=== PATIENT | female | born 1960 | race Caucasian/White ===

== ENCOUNTER → 2016-09-19 | Outpatient (CLI) | payer OTHER ==
--- NOTE | ~2016-09-19 | CR170 ---
[facility] A Service [facility] RADIOLOGY TEXT RESULTS PATIENT: MEGAN CHEUNG LOCATION: [facility] : 58 UNIT #: [id number] AGE: [address]: Bobbi Nugent MD SEX: F ORDER DR: [id number] [place], [place] [address] [id number] O MR#: [id number] Acc #: [id number] NAME: MEGAN CHEUNG : 1960 SEX: F STUDY DATE/TIME: 09/19/2016 10:51 UNIT: [facility] ROOM: STUDY DESCRIPTION: CR Knee 2 Views Rt Attending Physician: Bobbi Nugent M.D. Referring Physician: Bobbi Nugent M.D. Ordering Physician: Bobbi Nugent M.D. Primary Care Physician: Bobbi Nugent M.D. MEDICAL IMAGING REPORT This report is preliminary unless electronic signature is present EXAM Right knee. DATE OF EXAM 09/19/2016 INDICATIONS Right knee pain and osteoarthritis for 2 years. FINDINGS AP and lateral views of the right knee were obtained. There is mild narrowing in the lateral joint compartment with osteophyte formation from the lateral femoral condyle. There is minimal spurring from the patella. There is no fracture or effusion. IMPRESSION Degenerative change in the lateral joint compartment and patellofemoral joint; otherwise, normal. Dictated by... Jarret Mattson M.D. THIS IS AN ELECTRONICALLY VERIFIED REPORT Jarret Mattson M.D. at 09/20/2016 12:24 PM Manolo TD: 09/20/2016 00:04 JOB #: [id number] MEDICAL IMAGING REPORT [facility] A Service [facility] RADIOLOGY TEXT RESULTS PATIENT: MEGAN CHEUNG LOCATION: [facility] : 58 UNIT #: [id number] AGE: [address]: Bobbi Nugent MD SEX: F ORDER DR: COPY
--- NOTE | ~2016-09-19 | CR169 ---
[facility] A Service of [facility] RADIOLOGY TEXT RESULTS PATIENT: MEGAN CHEUNG LOCATION: [facility] : 58 UNIT #: [id number] AGE: [address]: Bobbi Nugent MD SEX: F ORDER DR: [id number] [facility] [address] [place], [place] [address] [id number] O MR#: [id number] Acc #: [id number] NAME: MEGAN CHEUNG : 1960 SEX: F STUDY DATE/TIME: 09/19/2016 10:52 UNIT: [facility] ROOM: STUDY DESCRIPTION: CR Knee 2 Views Lt Attending Physician: Bobbi Nugent M.D. Referring Physician: Bobbi Nugent M.D. Ordering Physician: Bobbi Nugent M.D. Primary Care Physician: Bobbi Nugent M.D. MEDICAL IMAGING REPORT This report is preliminary unless electronic signature is present EXAM Left knee. DATE OF EXAM 09/19/2016 INDICATION Left knee pain and osteoarthritis for 2 years. FINDINGS AP and lateral views of the left knee were obtained. There is no fracture or effusion. There is minimal spurring from patella. The AP view appears slightly flexed. No significant joint space narrowing is identified. IMPRESSION Minimal degenerative changes with some spurring from the patella. Dictated by... Jarret Mattson M.D. THIS IS AN ELECTRONICALLY VERIFIED REPORT Jarret Mattson M.D. at 09/20/2016 12:24 PM Manolo TD: 09/20/2016 00:06 JOB #: [id number] MEDICAL IMAGING REPORT COPY
== END | disposition home or self-care (01) ==
LOC: CRAD 10:34
DX: M17.0 Bilateral primary osteoarthritis of knee (principal); M25.561 Pain in right knee; M25.562 Pain in left knee; M76.9 Unspecified enthesopathy, lower limb, excluding foot
CPT/HCPCS: 73560